=== PATIENT | female | born 1975 | race Hispanic/Latino ===

== ENCOUNTER 2021-03-17 12:38 | Emergency (ER) | payer MEDICAID, OTHER, SELFPAY ==
[~2021-03-17] VITALS: Ht 152.4 cm; Wt 98.0 kg
[2021-03-17] MEDS ORDERED: GUAIFENESIN SUGAR-FREE 100 MG/5 ML UDCUP PO SCH (14:00)
[2021-03-17] MEDS ORDERED: AZIT500T PO (15:19)
[2021-03-17] MEDS ORDERED: MAGIC240 MM (15:19)
[2021-03-17] MEDS ORDERED: D-ME118S47 PO (15:19)
[2021-03-17] MEDS ORDERED: LIDOCAINE HCL-MPF 1% 2ML VIAL ONE (15:24)
[2021-03-17] MEDS ORDERED: CEFTRIAXONE 1G VIAL IM ONE (15:30)
[2021-03-17] MEDS ORDERED: LIDOCAINE HCL 2% VISCOUS 15 ML UDCUP PO ONE (15:30)
[2021-03-17 15:37] VITALS: BP 132/66
== END 2021-03-17 15:45 | disposition home or self-care (01) ==
LOC: EDH 12:38
DX: J02.0 Streptococcal pharyngitis (principal); Z20.822 Contact with and (suspected) exposure to COVID-19; I10 Essential (primary) hypertension; E11.9 Type 2 diabetes mellitus without complications; Z79.899 Other long term (current) drug therapy
CPT/HCPCS: 71045; 87635; 87804 ×2; 87880; 96372; 99284; C9803; J0696; J3490

== ENCOUNTER 2021-07-08 11:01 | Emergency (ER) | payer BC, OTHER ==
[~2021-07-08] VITALS: Ht 152.4 cm; Wt 95.3 kg
[~2021-07-08 11:01] MED LIST: AZIT500T PO; D-ME118S47 PO; MAGIC240 MM
[2021-07-08 11:07] VITALS: BP 150/69
== END 2021-07-08 11:50 | disposition left against medical advice (07) ==
LOC: EDH 11:01
DX: R05.9 Cough, unspecified (principal); Z53.21 Procedure and treatment not carried out due to patient leaving prior to being seen by health care provider